=== PATIENT | female | born 1955 | race Caucasian/White ===

== ENCOUNTER 2025-02-27 12:46 | Inpatient (IN) | payer BC, MEDICARE ==
[~2025-02-27] VITALS: Ht 165.1 cm; Wt 64.6 kg
--- NOTE | 2025-02-27 12:51 | ERN ---
ED Note History of Present Illness Stated Complaint: OTHER Chief Complaint: Other Problems Time Seen by MD: 12:49 Dictation: PATIENT IS A CONFUSED CONFUSED 69-YEAR-OLD FEMALE COMING IN VIA EMS FROM HOME. SHE IS UNABLE TO PROVIDE A HISTORY, EMS STATES THAT THEY WERE CALLED BY HER SON MARITZA WHO SAID THAT THEY HAD DRIVEN DOWN WITH THE PATIENT FROM [place] THIS WEEKEND AND DURING THE TRIP SHE BECAME MORE CONFUSED AND THEN BECAME MORE AGITATED. SHE IS CALLING HER SISTER MARITZA'S . SHE DOES HAVE A HISTORY OF ALZHEIMER'S AND DEMENTIA RECENTLY HAD A MEDICATION CHANGE. Allergies: Coded Allergies: No Known Drug Allergies (Unverified Allergy, Unknown, 02/27/25) Home Meds Active Scripts Amoxicillin/Potassium Clav (Amox Tr-K Clv 875-125 mg Tab) 875 Mg-125 Mg Tablet, 1 EACH PO BID for 7 Days, #14 TAB 0 Refills Prov:LIZZIE MATHIAS ROUTER OPERATOR RADIAL 02/27/25 Past Medical History History: Not Applicable RN Note Reviewed/Agreed w/PFSH: Yes Review of System Dictation CONSTITUTIONAL: NEGATIVE EXCEPT FOR HPI HEAD/FACE: NEGATIVE EXCEPT FOR HPI EENT: NEGATIVE EXCEPT FOR HPI RESPIRATORY: NEGATIVE EXCEPT FOR HPI GASTROINTESTINAL/ABDOMINAL: NEGATIVE EXCEPT FOR HPI GENITOURINARY: NEGATIVE EXCEPT FOR HPI MUSCULOSKELETAL: NEGATIVE EXCEPT FOR HPI INTEGUMENTARY: NEGATIVE EXCEPT FOR HPI NEUROLOGICAL/PSYCH: NEGATIVE EXCEPT FOR HPI ALTERED MENTAL STATUS/INCREASED CONFUSION HEMATOLOGIC/LYMPHATIC: NEGATIVE EXCEPT FOR HPI ALL SYSTEMS NEGATIVE, EXCEPT NOTED ABOVE. 13 POINT REVIEW OF SYSTEMS ASSESSED AND ALL NEGATIVE EXCEPT FOR ABOVE. Initial Vital Sign VS Vital Signs Date Time Temp Pulse Resp B/P (MAP) Pulse Ox O2 Delivery O2 Flow Rate FiO2 02/27/25 12:52 98.2 116 18 142/92 98 Room Air 0 Physical Exam Dictation VITAL SIGNS REVIEWED GENERAL APPEARANCE: ALERT, ORIENTED X 1-2, NO ACUTE DISTRESS, WELL DEVELOPED, NOURISHED. ANXIOUS HEAD AND FACE: NON-TRAUMATIC. EYES: PERRL, PINK CONJUNCTIVAS, EYELID NO TRAUMA, ANTERIOR CHAMBER WITH ARCUS SENILIS. EARS: PINNAS INTACT AND NO SIGNS OF TRAUMA OR ERYTHEMA EAR CANALS CLEAR AND NO DISCHARGE TM NO ERYTHEMA NOSE: NO DISCHARGE, NO BLEEDING. OROPHARYNX: MOUTH NORMAL, TONGUE PINK, PHARYNX CLEAR,NO ERYTHEMA, TONSILS NO EXUDATES, NO ABSCESSES NOTED, MUCOUS MEM BRANE MOIST NECK: SUPPLE, NON-TENDER, NO THYROMEGALY, NO MASSES, NO JVD, NO BRUITS BREAST:DEFERRED CHEST:NO TENDERNESS, NO CREPITUS, NO PARADOXICAL MOVEMENT, NO RETRACTIONS LUNGS:CLEAR, WELL-VENTILATED, SYMMETRIC, NO RALES, NO WHEEZING, NO RHONCHI, NO STRIDOR, GOOD BREATH SOUNDS BILATERALLY HEART: REGULAR RATE, REGULAR RHYTHM, NO MURMUR, NO GALLOPS VASCULAR: NO PERIPHERAL EDEMA, ABDOMEN: SOFT, POSITIVE BOWEL SOUNDS, NONDISTENDED, NO GUARDING, NONTENDER, NO REBOUND, NO MASSES NO HEPATOMEGALY, NO SPLENOMEGALY, NO MOORE'S SIGN, NO HERNIAS. RECTAL: DEFERRED GENITAL: DEFERRED NEUROLOGICAL: NORMAL SPEECH, MOTOR FUNCTION INTACT, SENSORY FUNCTION INTACT MUSCULOSKELETAL: NECK NONTENDER, FULL RANGE OF MOTION, BACK NONTENDER, FULL RANGE OF MOTION, EXTREMITIES: NONTENDER, FULL RANGE OF MOTION SKIN: COLOR PINK, DRY, NO TURGOR, NO RASH, NO LACERATIONS, NO ABRASIONS, NO CONTUSIONS. LYMPHATIC: DEFERRED Results (Laboratory/Radiology) Laboratory/Radiology Laboratory Tests Test 02/27/25 12:59 02/27/25 14:21 White Blood Count 6.7 K/uL (4.8-10.8) Red Blood Count 4.30 MIL/uL (4.00-5.50) Hemoglobin 13.3 g/dL (12.0-16.0) Hematocrit 38.8 % (36-48) Mean Corpuscular Volume 90.2 fL (79-99) Mean Corpuscular Hemoglobin 30.9 pg (27.0-33.0) Mean Corpuscular Hemoglobin Concent 34.3 g/dL (32.0-36.0) Red Cell Distribution Width 13.0 % (11.0-15.5) Platelet Count 240 K/uL (130-400) Mean Platelet Volume 8.8 fL (7.5-10.5) Immature Granulocyte % (Auto) 0.2 % (0-1) Neutrophils (%) (Auto) 65.7 % (40.0-77.0) Lymphocytes (%) (Auto) 25.4 % (21.0-51.0) Monocytes (%) (Auto) 7.7 % (3.0-13.0) Eosinophils (%) (Auto) 0.5 % (0.0-8.0) Basophils (%) (Auto) 0.5 % (0.0-5.0) Neutrophils # (Auto) 4.4 K/uL (1.8-7.7) Lymphocytes # (Auto) 1.7 K/uL (1.0-4.8) Monocytes # (Auto) 0.5 K/uL (0.1-1.0) Eosinophils # (Auto) 0.03 K/uL (0.00-0.70) Basophils # (Auto) 0.03 K/uL (0.00-0.20) Absolute Immature Granulocyte (auto 0.01 K/uL (0-1) Nucleated Red Blood Cells 0.0 % (0.0-0.19) Sodium Level 143 mmol/L (136-145) Potassium Level 3.8 mmol/L (3.5-5.1) Chloride Level 106 mmol/L (101-111) Carbon Dioxide Level 28 mmol/L (21-32) Blood Urea Nitrogen 14 mg/dL (7-18) Creatinine 0.7 mg/dL (0.5-1.0) Glomerular Filtration Rate Calc 92 mL/min (>90) Random Glucose 102 mg/dL (70-105) Total Calcium 9.5 mg/dL (8.5-10.1) Magnesium Level 2.00 mg/dL (1.80-2.40) Total Bilirubin 0.6 mg/dL (0.2-1.0) Aspartate Amino Transf (AST/SGOT) 24 U/L (10-37) Alanine Aminotransferase (ALT/SGPT) 23 U/L (12-78) Alkaline Phosphatase 62 U/L (50-136) Total Protein 7.3 g/dL (6.0-8.3) Albumin 4.0 g/dL (3.5-5.0) Urine Color YELLOW (YELLOW) Urine Appearance CLOUDY (CLEAR) H Urine pH 5.0 (5.0-8.0) Urine Specific [place] 1.024 (1.001-1.031) Urine Protein 10 mg/dL (NEGATIVE) H Urine Glucose (UA) NEGATIVE mg/dL (NEGATIVE) Urine Ketones NEGATIVE mg/dL (NEGATIVE) Urine Occult Blood +- (TRACE) (NEGATIVE) H Urine Nitrate 2+ (NEGATIVE) H Urine Bilirubin NEGATIVE mg/dL (NEGATIVE) Urine Urobilinogen 0.2 mg/dL (0.2-1.0) Urine Leukocyte Esterase 500 Padmini/uL (NEGATIVE) H Urine RBC 6-10 /HPF (0-1) H Urine WBC 26-50 /HPF (0-1) H Urine Squamous Epithelial Cells FEW /HPF (0-2) Urine Bacteria FEW /HPF (None Seen) Urine Other Casts 2 /LPF (None Seen) Urine Opiates Screen NEGATIVE (NEGATIVE) Urine Barbiturates Screen NEGATIVE (NEGATIVE) Urine Phencyclidine Screen NEGATIVE (NEGATIVE) Urine Amphetamines Screen NEGATIVE (NEGATIVE) Urine Benzodiazepines Screen NEGATIVE (NEGATIVE) Urine Cocaine Screen NEGATIVE (NEGATIVE) Urine Marijuana (THC) Screen NEGATIVE (NEGATIVE) XAM: CR Chest, 1 View. CLINICAL HISTORY: CONFUSION COMPARISON: None provided. FINDINGS: LUNGS: The lungs show no infiltrate or other acute finding. PLEURAL SPACES: No pleural effusion or pneumothorax. MEDIASTINUM: The cardiomediastinal silhouette is within normal limits. BONES: No aggressive appearing osseous lesion seen. IMPRESSION: No acute cardiopulmonary pathology is evident. /[place] M: CT Head Without IV contrast. CLINICAL HISTORY: CONFUSION TECHNIQUE: Axial computed tomography images of the head/brain without intravenous contrast. COMPARISON: None provided. FINDINGS: BRAIN: No acute bleed or infarct. Mild chronic ischemic and atrophic changes. VENTRICLES: No hydrocephalus. ORBITS: The orbits are unremarkable. SINUSES AND MASTOIDS: The paranasal sinuses and mastoid air cells are clear. BONES: No fracture. SOFT TISSUES: Unremarkable. IMPRESSION: No acute bleed or infarct. Mild chronic ischemic and atrophic changes. /[place] Labs Reviewed?: Yes EKG Comment: EKG NORMAL SINUS RHYTHM/HEART RATE 78/AXIS NORMAL/NO ECTOPY ED Course ED Course Orders Procedure Category Date Status Time Ct Head/Brain W/O CT 02/27/25 Resulted Contrast 12:48 Drug Screen Urine LAB 02/27/25 Complete 12:48 Cbc With Differential LAB 02/27/25 Complete 12:48 Chest 1vw RAD 02/27/25 Resulted 12:48 12 Lead Ekg Tracing- EKG 02/27/25 Logged Technical 12:48 Magnesium LAB 02/27/25 Complete 12:48 Basic Metabolic Panel LAB 02/27/25 Complete 12:48 Comprehensive LAB 02/27/25 Complete Metabolic Panel 12:48 Urinalysis Profile LAB 02/27/25 Complete 12:48 One To One Sitter CPOE 02/27/25 Transmitted 14:33 Culture Urine VIN 02/27/25 In Process 14:36 Ceftriaxone 2gm Vial PHA 02/27/25 Complete (Rocephin 2gm Inj) 15:00 Edm Admit Bridge Order ADM 02/27/25 Verified 16:07 Current Medications Medications (Trade) Dose Ordered Sig/Nunu Route PRN Reason Start Time Stop Time Status Last Admin Dose Admin Ceftriaxone Sodium (Rocephin 2gm Inj) 2 gm ONCE ONCE IVPB 02/27/25 15:00 02/27/25 15:01 DC 02/27/25 15:19 Vital Signs Date Time Temp Pulse Resp B/P (MAP) Pulse Ox O2 Delivery O2 Flow Rate FiO2 02/27/25 12:52 98.2 116 18 142/92 98 Room Air 0 1500/SPOKE WITH PATIENT AND HER SON, SUZY AT BEDSIDE. THEY ARE AWARE THAT I HAVE HAD NO ACUTE FINDINGS OTHER THAN AN ACUTE UTI WITH HEMATURIA. PATIENT IS INSISTENT THAT SHE IS NOT STAYING IN THE HOSPITAL, MED IS AWARE I HAVE NO ABILITY TO MAKE HER STATE. SHE AGREES TO LET ME KEEP HER FOR ROCEPHIN 2 G AND MED STATES SHE IS STAYING WITH HER SISTER.1550/ 1550/ANTIBIOTICS WERE COMPLETED. SPOKE TO PATIENT AND HER SON AT LENGTH REGARDING THE NEED FOR HOSPITALIZATION AND CONTINUED IV ANTIBIOTICS. PATIENT A GREES TO STAY OVERNIGHT. SON IS AT THE BEDSIDE AND HE AGREES. 1605/SPOKE WITH [facility] HOSPITALIST REVIEWED EKG LABS CHEST X-RAY AND SHE AGREED TO ADMIT. SHE IS AWARE THAT PATIENT HAS RECEIVED ROCEPHIN2 G IV PIGGYBACK. HEART Score Response (Comments) Value History: Low suspicion (0) 0 Age: > 65yrs (+2) 2 Risk Factors: 1-2 risk factors (+1) 1 Initial Troponin: Normal limit (0) 0 Total 3 Medical Decision Making MDM MDM: DIFFERENTIAL DIAGNOSIS: DEMENTIA/ALZHEIMER'S/ELECTROLYTE IMBALANCE/DEHYDRATION/DRUG ABUSE/PNEUMONIA/BRONCHITIS/UTI RATIONALE: TESTS CONSIDERED AND ORDERED SECONDARY TO SHARED DECISION MAKING INCLUDE: LABS/RADIOLOGY PREVIOUS OUTSIDE RECORDS REVIEWED: OLD ER VISITS. RISK OF COMPLICATION AND/OR MORBIDITY OR MORTALITY OF PATIENT MANAGEMENT: NONE MEDICATIONS-PER MEDICATION RECONCILIATION NEED FOR HOSPITALIZATION: PATIENT DOES NOT MEET CRITERIA FOR HOSPITALIZATION. PATIENT REFUSED AND SONSUZY AT BEDSIDE AGREES NEED FOR EMERGENCY MAJOR/MINOR SURGERY: NO THERE ARE NO SOCIAL CONCERNS WITH THIS PATIENT. PRESCRIPTION DRUG MANAGEMENT AUGMENTIN PRESCRIPTIONS WILL INCLUDE SYMPTOMATIC CARE PATIENT'S PRIOR EXTERNAL MEDICAL RECORDS FROM OTHER ER VISITS WERE REVIEWED BY ME INDICATED. PRIOR TESTING AND RESULTS FROM PREVIOUS VISITS WERE REVIEWED. PRIOR TESTS WERE TAKEN INTO ACCOUNT WITH MEDICAL DECISION MAKING AND RESOURCE UTILIZATION, INDEPENDENT HISTORIAN/HISTORIANS WERE USED TO OBTAIN COMPLETE MEDICAL HISTORY. I INDEPENDENTLY INTERPRETED THE TEST THAT WERE PERFORMED, RESULTS WERE REVIEWED BY ME AND CONSIDERED FINDINGS ON RADIOLOGY IF ORDERED. MEDICAL MANAGEMENT AND EXAMINATION INTERPRETATION DISCUSSIONS WERE HAD BY ME WITH OTHER QUALIFIED HEALTHCARE PROFESSIONALS INDICATED FOR THE PATIENT'S CARE. DX & DISP Disposition: Inpatient Decision to Admit Time: 16:04 Departure Impression: Primary Impression: Acute cystitis with hematuria Additional Impression: History of dementia Condition: Stable Scripts Amoxicillin/Potassium Clav (Amox Tr-K Clv 875-125 mg Tab) 875 Mg-125 Mg Tablet 1 EACH PO BID for 7 Days, #14 TAB 0 Refills Prov: LIZZIE MATHIAS NP 02/27/25 Additional Instructions: FOLLOW-UP WITH PRIMARY CARE PROVIDER IN 1 TO 2 DAYS. TAKE MEDICATIONS DIRECTED HERE IN THE EMERGENCY ROOM. OKAY TO CONTINUE HOME MEDICATIONS UNLESS OTHERWISE DISCUSSED DURING YOUR VISIT IN THE EMERGENCY ROOM TODAY. RETURN TO YOUR NEAREST EMERGENCY ROOM IF SYMPTOMS WORSEN OR IF THERE IS NO IMPROVEMENT. CALL 911 IF YOU NEED IMMEDIATE ASSISTANCE. TAKE TYLENOL OR MOTRIN [id number] NEEDED AND IF NO CONTRAINDICATIONS ARE PRESENT. INCREASE ORAL HYDRATION. A WOUND CULTURE OR URINE CULTURE WAS ORDERED HERE IN THE EMERGENCY ROOM DEPARTMENT PLEASE FOLLOW-UP WITH PRIMARY CARE PROVIDER AND ADVISE THEM TO GET REPEAT PORTS FROM OUR FACILITY. IF YOU HAD ANY NUHA WRAP/SPLINTS THAT WERE APPLIED HERE, PLEASE DO NOT REMOVE THEM UNTIL YOU SEE YOUR PRIMARY CARE OR SPECIALTY. TAKE ANTIBIOTICS DIRECTED UNTIL GONE. , INCREASE YOUR WATER INTAKE. RETURN TO THE EMERGENCY ROOM IF ANY NEW CHANGES IN MENTAL STATUS, FEVER MORE THAN 101, PATIENT NOT KEEP FOOD OR FLUIDS DOWN. Time of Disposition: 15:54 I have reviewed the case, and I agree with, Diagnosis and Plan LIZZIE MATHIAS NP Feb 27, 2025 12:51
[2025-02-27 13:07] LABS: IMMATURE GRANULOCYTE ABSOLUTE 0.01 K/uL (0-1); NUCLEATED RED BLOOD CELLS 0.0 % (0.0-0.19); PLATELET COUNT (AUTO) 240 K/uL (130-400); RED BLOOD CELL COUNT(AUTO) 4.30 MIL/uL (4.00-5.50); RED CELL DISTRIBUTION WIDTH 13.0 % (11.0-15.5); WHITE BLOOD COUNT (AUTO) 6.7 K/uL (4.8-10.8)
--- NOTE | 2025-02-27 13:14 | HMCIMG ---
EXAM: CR Chest, 1 View. CLINICAL HISTORY: CONFUSION COMPARISON: None provided. FINDINGS: LUNGS: The lungs show no infiltrate or other acute finding. PLEURAL SPACES: No pleural effusion or pneumothorax. MEDIASTINUM: The cardiomediastinal silhouette is within normal limits. BONES: No aggressive appearing osseous lesion seen. IMPRESSION: No acute cardiopulmonary pathology is evident. /[place]
[2025-02-27 13:18] LABS: CREATININE 0.7 mg/dL (0.5-1.0); GLOMERULAR FILTR. RATE CALC 92.0 mL/min (>90); GLUCOSE,RANDOM 102.0 mg/dL (70-105); SODIUM SERUM 143.0 mmol/L (136-145); UREA NITROGEN, BLOOD 14.0 mg/dL (7-18)
[2025-02-27 13:23] LABS: ASPARTATE AMINOTRANSFERASE 24.0 U/L (10-37); TOTAL PROTEIN, SERUM 7.3 g/dL (6.0-8.3)
--- NOTE | 2025-02-27 14:00 | NUR ---
ASSUMED CARE AT THIS TIME
--- NOTE | 2025-02-27 14:10 | HMCIMG ---
EXAM: CT Head Without IV contrast. CLINICAL HISTORY: CONFUSION TECHNIQUE: Axial computed tomography images of the head/brain without intravenous contrast. COMPARISON: None provided. FINDINGS: BRAIN: No acute bleed or infarct. Mild chronic ischemic and atrophic changes. VENTRICLES: No hydrocephalus. ORBITS: The orbits are unremarkable. SINUSES AND MASTOIDS: The paranasal sinuses and mastoid air cells are clear. BONES: No fracture. SOFT TISSUES: Unremarkable. IMPRESSION: No acute bleed or infarct. Mild chronic ischemic and atrophic changes. /[place]
[2025-02-27 14:29] LABS: APPEARANCE,URINE CLOUDY (CLEAR); GLUCOSE, URINE (UA) NEGATIVE (NEGATIVE); LEUKOCYTE ESTERASE ,URINE 500 Leu/uL (NEGATIVE); NITRATE,URINE 2+ (NEGATIVE); OCCULT BLOOD,URINE +- (TRACE) (NEGATIVE)
[2025-02-27 14:30] LABS: ADD UA MICROSCOPIC YES
--- NOTE | 2025-02-27 14:35 | NUR ---
PT 1:1 DUE TO DEMENTIA ALZHENIMERS AGRESSIVENESS
[2025-02-27 14:36] LABS: AMPHET/METH SCREEN,URINE NEGATIVE (NEGATIVE); BARBITURATE SCREEN, URINE NEGATIVE (NEGATIVE); CANNABINOID SCREEN,URINE NEGATIVE (NEGATIVE); COCAINE SCREEN,URINE NEGATIVE (NEGATIVE)
[2025-02-27 14:37] LABS: OTHER CASTS, URINE 2 /LPF (None Seen); SQUAMOUS EPITHELIAL CELL,UR FEW /HPF (0-2)
[2025-02-27] MEDS ORDERED: AMOX1TAB16 PO (15:54)
--- NOTE | 2025-02-27 16:58 | HP ---
[facility] HISTORY AND PHYSICAL Date of Service: Feb 27, 2025 Time of Service: 16:17 HISTORY OF PRESENT ILLNESS: [This is a 69-year-old female with a history of early Alzheimer's disease and hypertension who traveled from [place] to [place] with her son, Mario, to visit her sister. During the trip, her son noted that she became increasingly agitated and exhibited changes in behavior compared to her baseline. Due to these acute changes, she was brought to the ER by ambulance for further evaluation. Her medications include donepezil, which was recently increased to 10 mg daily by her PCP last week, and losartan 100 mg daily. In the ED, she received 1 L of normal saline and 2 g IV ceftriaxone. Urinalysis was positive for leukocyte esterase (500), and urine cultures were sent. Hematology and chemistry labs were unremarkable. Chest X-ray showed no acute cardiopulmonary pathology. Head CT without contrast showed no acute bleed or infarct, but did reveal mild chronic ischemic and atrophic changes. She was referred to the hospitalist service for further evaluation and management.] REVIEW OF SYSTEMS CONSTITUTIONAL: Denies fevers, chills, or night sweats. No unintentional weight loss reported. NEUROLOGICAL: Denies headache, amaurosis fugax, motor weakness, sensory deficit, vertigo/spinning sensation, gait abnormalities, or tremors. ENT: No hearing loss, otalgia, otorrhea, rhinitis, rhinorrhea, hoarseness, or sore throat. CARDIOVASCULAR: Denies any exertional angina, dyspnea on exertion, orthopnea, paroxysmal nocturnal dyspnea, palpitations, life-threatening arrhythmias, claudication. PULMONARY: Denies any shortness of breath, cough, phlegm/sputum, hemoptysis, pleuritic chest pain. SLEEP: Denies morning headaches, daytime somnolence or napping. Denies difficulty falling asleep, staying asleep, waking from sleep. Denies knowledge of snoring. GASTROINTESTINAL: Denies any type of dysphagia to either liquids or solids. Denies nausea, vomiting, pyrosis, early satiety, abdominal pain, diarrhea, constipation, or changes in stool consistency or caliber. Denies coffee-ground emesis, hematemesis, hematochezia, or melanotic stools. GENITOURINARY: Denies frequency, urgency, nocturia, hematuria or incontinence (Storage/Irritative symptoms.) Low urinary stream, straining to void, urinary intermittency or hesitancy, splitting of the voiding stream, terminal dribbling. ENDOCRINOLOGIC: Denies polyuria, polydipsia, polyphagia or heat/cold intolerances. HEMATOLOGIC: Denies thrombophilia/previous clots, or coagulopathy/bleeding disorders. ONCOLOGIC: Denies personal history of malignancy. DERMATOLOGIC: Denies rashes or pruritus. PSYCHIATRIC: Denies any suicidal or homicidal ideation. Denies hallucinations. PAST MEDICAL HISTORY: [Alzheimer's disease, hypertension, asthma ] PAST SURGICAL HISTORY: [Hip replacement, hysterectomy, cholecystectomy ] PAST SOCIAL HISTORY: [Occasionally drinks wine, denies tobacco, alcohol illicit drug use. 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 ] FAMILY HISTORY: [Noncontributory ] Coded Allergies: No Known Drug Allergies (Unverified Allergy, Unknown, 02/27/25) PHYSICAL EXAM GENERAL APPEARANCE: The patient is awake, alert, and oriented, in no acute cardiopulmonary distress. NEUROLOGICAL: Cranial nerves II-XII grossly intact. Motor is 5/5 in bilateral upper and lower extremities proximal to distal. No sensory deficits. HEENT: Face is symmetric. Pupils are equal and reactive. Extraocular movements are intact. NECK: Supple. No JVD. No thyromegaly. No submental, submandibular, pre-/po stauricular, occipital or supraclavicular lymphadenopathy. CHEST: Normal chest expansion. No Telemetry. LUNGS: Absence of any rales, rhonchi or any wheezing. CARDIOVASCULAR: Regular. S1 and S2 normal. No appreciable rubs, murmurs or gallops. ABDOMEN: Soft, nontender, and nondistended. There is no rebound, voluntary guarding, or rigidity. : Deferred. No Shields. EXTREMITIES: Non-edematous and not cyanotic. No clubbing. Good capillary refill. SKIN: No skin breakdown. Vital Sign (Last 24 Hours) 02/27/25 12:52 Temp 98.2 Pulse 116 Resp 18 B/P (MAP) 142/92 Pulse Ox 98 O2 Delivery Room Air O2 Flow Rate 0 LABS: Laboratory: Test 02/27/25 14:21 02/27/25 12:59 Range/Units Urine Color YELLOW YELLOW Urine Appearance CLOUDY H CLEAR Urine pH 5.0 5.0-8.0 Urine Specific [place] 1.024 1.001-1.031 Urine Protein 10 H NEGATIVE mg/dL Urine Glucose (UA) NEGATIVE NEGATIVE mg/dL Urine Ketones NEGATIVE NEGATIVE mg/dL Urine Occult Blood +- (TRACE) H NEGATIVE Urine Nitrate 2+ H NEGATIVE Urine Bilirubin NEGATIVE NEGATIVE mg/dL Urine Urobilinogen 0.2 0.2-1.0 mg/dL Urine Leukocyte Esterase 500 H NEGATIVE Padmini/uL Urine RBC 6-10 H 0-1 /HPF Urine WBC 26-50 H 0-1 /HPF Urine Squamous Epithelial Cells FEW 0-2 /HPF Urine Bacteria FEW None Seen /HPF Urine Other Casts 2 None Seen /LPF Urine Opiates Screen NEGATIVE NEGATIVE Urine Barbiturates Screen NEGATIVE NEGATIVE Urine Phencyclidine Screen NEGATIVE NEGATIVE Urine Amphetamines Screen NEGATIVE NEGATIVE Urine Benzodiazepines Screen NEGATIVE NEGATIVE Urine Cocaine Screen NEGATIVE NEGATIVE Urine Marijuana (THC) Screen NEGATIVE NEGATIVE White Blood Count 6.7 4.8-10.8 K/uL Red Blood Count 4.30 4.00-5.50 MIL/uL Hemoglobin 13.3 12.0-16.0 g/dL Hematocrit 38.8 36-48 % Mean Corpuscular Volume 90.2 79-99 fL Mean Corpuscular Hemoglobin 30.9 27.0-33.0 pg Mean Corpuscular Hemoglobin Concent 34.3 32.0-36.0 g/dL Red Cell Distribution Width 13.0 11.0-15.5 % Platelet Count 240 130-400 K/uL Mean Platelet Volume 8.8 7.5-10.5 fL Immature Granulocyte % (Auto) 0.2 0-1 % Neutrophils (%) (Auto) 65.7 40.0-77.0 % Lymphocytes (%) (Auto) 25.4 21.0-51.0 % Monocytes (%) (Auto) 7.7 3.0-13.0 % Eosinophils (%) (Auto) 0.5 0.0-8.0 % Basophils (%) (Auto) 0.5 0.0-5.0 % Neutrophils # (Auto) 4.4 1.8-7.7 K/uL Lymphocytes # (Auto) 1.7 1.0-4.8 K/uL Monocytes # (Auto) 0.5 0.1-1.0 K/uL Eosinophils # (Auto) 0.03 0.00-0.70 K/uL Basophils # (Auto) 0.03 0.00-0.20 K/uL Absolute Immature Granulocyte (auto 0.01 0-1 K/uL Nucleated Red Blood Cells 0.0 0.0-0.19 % Sodium Level 143 136-145 mmol/L Potassium Level 3.8 3.5-5.1 mmol/L Chloride Level 106 101-111 mmol/L Carbon Dioxide Level 28 21-32 mmol/L Blood Urea Nitrogen 14 7-18 mg/dL Creatinine 0.7 0.5-1.0 mg/dL Glomerular Filtration Rate Calc 92 >90 mL/min Random Glucose 102 70-105 mg/dL Total Calcium 9.5 8.5-10.1 mg/dL Magnesium Level 2.00 1.80-2.40 mg/dL Total Bilirubin 0.6 0.2-1.0 mg/dL Aspartate Amino Transf (AST/SGOT) 24 10-37 U/L Alanine Aminotransferase (ALT/SGPT) 23 12-78 U/L Alkaline Phosphatase 62 50-136 U/L Total Protein 7.3 6.0-8.3 g/dL Albumin 4.0 3.5-5.0 g/dL Current Medications Medications (Trade) Dose Ordered Sig/Nunu Route PRN Reason Start Time Stop Time Status Last Admin Dose Admin Acetaminophen (TYLenol 325MG TAB) 650 mg Q4H PRN PO TEMPERATURE GREATER THAN 101.5 02/27/25 16:30 03/29/25 16:29 UNV Acetaminophen (TYLenol 325MG TAB) 650 mg Q6H PRN PO MILD PAIN (1-3) 02/27/25 16:30 03/29/25 16:29 UNV Ceftriaxone Sodium (Rocephin 2gm Inj) 2 gm Q24H IVPB 02/27/25 16:30 03/09/25 16:29 UNV Ondansetron HCl (zoFRAN 4MG INJ) 4 mg Q6H PRN IVP NAUSEA/VOMITING 02/27/25 16:30 03/29/25 16:29 UNV Sodium Chloride 1,000 ml @ 75 mls/hr [id number] IV 02/27/25 16:30 03/29/25 16:29 UNV DIAGNOSTICS / RADIOLOGY: [ ] ASSESSMENT: [Acute delirium, likely secondary to urinary tract infection, POA -acute onset of agitation and behavioral changes, positive urinalysis, urine culture pending, no evidence of acute intracranial or cardiopulmonary process -Metabolic encephalopathy Early Alzheimer's disease, POA -baseline cognitive impairment, recent increase in donepezil dosage Hypertension, POA -chronic, managed with losartan ] Urinary Tract infection, POA PLAN: [Patient will be admitted in medical-surgical floor Patient can have heart healthy diet Continue with supportive care We will repeat labs tomorrow Delirium/UTI: Continue IV ceftriaxone pending urine culture and sensitivities Monitor mental status and reorient as needed Ensure adequate hydration Monitor for complications (sepsis, worsening mental status) Alzheimer's disease: With 1-1 supervision Continue donepezil at current dose Monitor for adverse effects from recent dose increase Reassess cognitive baseline after resolution of acute illness Hypertension: Continue losartan 100 mg daily Monitor blood pressure and adjust antihypertensive therapy as needed General care: Fall precautions Monitor labs and vital signs Family education regarding delirium and UTI in the context of dementia Discharge planning with social work/case management as appropriate Patient is a full code ADVANCED CARE PLANNING 1. Which of the following were discussed? Hospice Care - Yes / No Therapeutic options - Yes / No Advance Directives - Yes / No Other discussions - 2. Discussed with who? Patient 3. Voluntary nature of this service was explained to the patient? Yes / No 4. Amount of time spent - __20 mins 5. Reviewed by Physician? (if this service was performed by NPP) Yes / No ] ATTESTATION BY PHYSICIAN I have seen and examined the patient. I reviewed the documentation, medical decision making, and treatment plan as noted by the mid-level provider above. I agree with the findings and plan of care. Ju Castanon MD, [facility] Feb 27, 2025 16:58
[2025-02-27] MEDS: 0.9%NACL 1000ML 1,000 ML IV SCH (18:04)
--- NOTE | 2025-02-27 18:10 | NUR ---
PT HAS A ROOM BUT AFTER 7 NO SITTER DURING DAY SHIFT
--- NOTE | 2025-02-27 18:20 | EKG ---
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
[2025-02-27 19:56] VITALS: BP 160/89; PULSE 80; RESP 20; TEMP 97.7
[2025-02-27] MEDS ORDERED: DONE10TA43 PO (22:34)
[2025-02-27] MEDS ORDERED: LOSA100T59 PO (22:34)
[2025-02-28] VITALS (7 sets, daily range): BP systolic 134–161; BP diastolic 76–85; PULSE 66–90; RESP 17–21; TEMP 97.6–98.4; O2SAT 98
[2025-02-28 04:19] LABS: NUCLEATED RED BLOOD CELLS 0.0 % (0.0-0.19); PLATELET COUNT (AUTO) 187.0 K/uL (130-400); RED BLOOD CELL COUNT(AUTO) 4.04 MIL/uL (4.00-5.50); RED CELL DISTRIBUTION WIDTH 13.0 % (11.0-15.5); WHITE BLOOD COUNT (AUTO) 5.9 K/uL (4.8-10.8)
[2025-02-28 04:38] LABS: ASPARTATE AMINOTRANSFERASE 18.0 U/L (10-37); CREATININE 0.7 mg/dL (0.5-1.0); GLOMERULAR FILTR. RATE CALC 92.0 mL/min (>90); GLUCOSE,RANDOM 103.0 mg/dL (70-105); SODIUM SERUM 144.0 mmol/L (136-145); TOTAL PROTEIN, SERUM 6.1 g/dL (6.0-8.3); UREA NITROGEN, BLOOD 13.0 mg/dL (7-18)
[2025-02-28] MEDS: MAGNESIUM 2GM PREMIX 50ML 50 ML IV PRN (05:21)
[2025-02-28] MEDS: PoTASSium chloRIDE 20MEQ ER 20 MEQ ERTAB PO PRN (05:22)
[2025-02-28] MEDS: PoTASSium chl 10% ELIXIR 20MEQ 20 MEQ/15 ML UDCUP PO PRN (10:07)
--- NOTE | 2025-02-28 10:28 | NUR ---
DCP:[facility] spoke with son Mario Wright [phone] to gather information. Son states that they are currently in town because pt was going to be staying with her sister Italia Mars [phone] for 1-2 weeks while he traveled for work. As per son back at home pt lives alone in her home. She does not use any DME, home health, or provider services. Pt is able to complete ADLs independently. Son states that he lives down the street from her and checks in on her daily. PCP is Blossom Jacobson in [place], [place] and uses [facility] for any RX needs. As per son at [place] pt will be staying with her sister Italia and then they will be traveling back to [place]. Addendum: 02/28/25 at 1031 by BRI GUILLEN SS Amended: Links added.
--- NOTE | 2025-02-28 15:06 | PN ---
[facility] PROGRESS NOTE Date of Service: Feb 28, 2025 Time of Service: 15:02 SUBJECTIVE: [ The patient was evaluated in her room, where she was accompanied by her sister. She appeared agitated and repeatedly expressed a strong desire to be discharged home. Despite multiple attempts to explain the necessity of remaining hospitalized until her final culture results are available, she was unable to fully comprehend the situation. Her sister also attempted to reinforce this information, but the patient continued to have difficulty understanding. She has a known history of early dementia and is currently taking donepezil.] REVIEW OF SYSTEMS CONSTITUTIONAL: Denies fevers, chills, or night sweats. No unintentional weight loss reported. NEUROLOGICAL: Denies headache, amaurosis fugax, motor weakness, sensory deficit, vertigo/spinning sensation, gait abnormalities, or tremors. ENT: No hearing loss, otalgia, otorrhea, rhinitis, rhinorrhea, hoarseness, or sore throat. CARDIOVASCULAR: Denies any exertional angina, dyspnea on exertion, orthopnea, paroxysmal nocturnal dyspnea, palpitations, life-threatening arrhythmias, claudication. PULMONARY: Denies any shortness of breath, cough, phlegm/sputum, hemoptysis, pleuritic chest pain. SLEEP: Denies morning headaches, daytime somnolence or napping. Denies difficulty falling asleep, staying asleep, waking from sleep. Denies knowledge of snoring. GASTROINTESTINAL: Denies any type of dysphagia to either liquids or solids. Denies nausea, vomiting, pyrosis, early satiety, abdominal pain, diarrhea, constipation, or changes in stool consistency or caliber. Denies coffee-ground emesis, hematemesis, hematochezia, or melanotic stools. GENITOURINARY: Denies frequency, urgency, nocturia, hematuria or incontinence (Storage/Irritative symptoms.) Low urinary stream, straining to void, urinary intermittency or hesitancy, splitting of the voiding stream, terminal dribbling. ENDOCRINOLOGIC: Denies polyuria, polydipsia, polyphagia or heat/cold intolerances. HEMATOLOGIC: Denies thrombophilia/previous clots, or coagulopathy/bleeding disorders. ONCOLOGIC: Denies personal history of malignancy. DERMATOLOGIC: Denies rashes or pruritus. PSYCHIATRIC: Denies any suicidal or homicidal ideation. Denies hallucinations. PHYSICAL EXAM GENERAL APPEARANCE: The patient is awake, alert, and oriented, in no acute cardiopulmonary distress. NEUROLOGICAL: Cranial nerves II-XII grossly intact. Motor is 5/5 in bilateral upper and lower extremities proximal to distal. No sensory deficits. HEENT: Face is symmetric. Pupils are equal and reactive. Extraocular movements are intact. NECK: Supple. No JVD. No thyromegaly. No submental, submandibular, pre- /postauricular, occipital or supraclavicular lymphadenopathy. CHEST: Normal chest expansion. No Telemetry. LUNGS: Absence of any rales, rhonchi or any wheezing. CARDIOVASCULAR: Regular. S1 and S2 normal. No appreciable rubs, murmurs or gallops. ABDOMEN: Soft, nontender, and nondistended. There is no rebound, voluntary guarding, or rigidity. : Deferred. No Shields. EXTREMITIES: Non-edematous and not cyanotic. No clubbing. Good capillary refill. SKIN: No skin breakdown. Vital Signs (last 8hr) Date Time Temp Pulse Resp B/P (MAP) Pulse Ox O2 Delivery O2 Flow Rate FiO2 02/28/25 11:54 97.9 80 18 139/80 99 Room Air 02/28/25 07:53 97.7 66 19 134/76 98 Room Air 02/28/25 07:45 98 Room Air* 0 21 LABS: Laboratory: Test 02/28/25 04:15 02/27/25 14:21 02/27/25 12:59 Range/Units White Blood Count 5.9 4.8-10.8 K/uL Red Blood Count 4.04 4.00-5.50 MIL/uL Hemoglobin 12.5 12.0-16.0 g/dL Hematocrit 37.1 36-48 % Mean Corpuscular Volume 91.8 79-99 fL Mean Corpuscular Hemoglobin 30.9 27.0-33.0 pg Mean Corpuscular Hemoglobin Concent 33.7 32.0-36.0 g/dL Red Cell Distribution Width 13.0 11.0-15.5 % Platelet Count 187 130-400 K/uL Mean Platelet Volume 8.9 7.5-10.5 fL Nucleated Red Blood Cells 0.0 0.0-0.19 % Sodium Level 144 136-145 mmol/L Potassium Level 3.7 3.5-5.1 mmol/L Chloride Level 109 101-111 mmol/L Carbon Dioxide Level 27 21-32 mmol/L Blood Urea Nitrogen 13 7-18 mg/dL Creatinine 0.7 0.5-1.0 mg/dL Glomerular Filtration Rate Calc 92 >90 mL/min Random Glucose 103 70-105 mg/dL Total Calcium 8.4 L 8.5-10.1 mg/dL Magnesium Level 1.80 1.80-2.40 mg/dL Total Bilirubin 0.6 0.2-1.0 mg/dL Aspartate Amino Transf (AST/SGOT) 18 10-37 U/L Alanine Aminotransferase (ALT/SGPT) 19 12-78 U/L Alkaline Phosphatase 52 50-136 U/L Total Protein 6.1 6.0-8.3 g/dL Albumin 3.2 L 3.5-5.0 g/dL Urine Color YELLOW YELLOW Urine Appearance CLOUDY H CLEAR Urine pH 5.0 5.0-8.0 Urine Specific [place] 1.024 1.001-1.031 Urine Protein 10 H NEGATIVE mg/dL Urine Glucose (UA) NEGATIVE NEGATIVE mg/dL Urine Ketones NEGATIVE NEGATIVE mg/dL Urine Occult Blood +- (TRACE) H NEGATIVE Urine Nitrate 2+ H NEGATIVE Urine Bilirubin NEGATIVE NEGATIVE mg/dL Urine Urobilinogen 0.2 0.2-1.0 mg/dL Urine Leukocyte Esterase 500 H NEGATIVE Padmini/uL Urine RBC 6-10 H 0-1 /HPF Urine WBC 26-50 H 0-1 /HPF Urine Squamous Epithelial Cells FEW 0-2 /HPF Urine Bacteria FEW None Seen /HPF Urine Other Casts 2 None Seen /LPF Urine Opiates Screen NEGATIVE NEGATIVE Urine Barbiturates Screen NEGATIVE NEGATIVE Urine Phencyclidine Screen NEGATIVE NEGATIVE Urine Amphetamines Screen NEGATIVE NEGATIVE Urine Benzodiazepines Screen NEGATIVE NEGATIVE Urine Cocaine Screen NEGATIVE NEGATIVE Urine Marijuana (THC) Screen NEGATIVE NEGATIVE Immature Granulocyte % (Auto) 0.2 0-1 % Neutrophils (%) (Auto) 65.7 40.0-77.0 % Lymphocytes (%) (Auto) 25.4 21.0-51.0 % Monocytes (%) (Auto) 7.7 3.0-13.0 % Eosinophils (%) (Auto) 0.5 0.0-8.0 % Basophils (%) (Auto) 0.5 0.0-5.0 % Neutrophils # (Auto) 4.4 1.8-7.7 K/uL Lymphocytes # (Auto) 1.7 1.0-4.8 K/uL Monocytes # (Auto) 0.5 0.1-1.0 K/uL Eosinophils # (Auto) 0.03 0.00-0.70 K/uL Basophils # (Auto) 0.03 0.00-0.20 K/uL Absolute Immature Granulocyte (auto 0.01 0-1 K/uL Current Medications Medications (Trade) Dose Ordered Sig/Nunu Route PRN Reason Start Time Stop Time Status Last Admin Dose Admin Acetaminophen (TYLenol 325MG TAB) 650 mg Q4H PRN PO TEMPERATURE GREATER THAN 101.5 02/27/25 16:30 03/29/25 16:29 Acetaminophen (TYLenol 325MG TAB) 650 mg Q6H PRN PO MILD PAIN (1-3) 02/27/25 16:30 03/29/25 16:29 Ceftriaxone Sodium (Rocephin 2gm Inj) 2 gm Q24H IVPB 02/28/25 16:30 03/10/25 16:29 Donepezil HCl (ARIcept 5MG TAB) 10 mg HS PO 02/27/25 21:00 03/29/25 20:59 02/27/25 19:49 10 MG Losartan Potassium (CozAAR 100MG TAB) 100 mg HS PO 02/27/25 21:00 03/29/25 20:59 02/27/25 19:48 100 MG Magnesium Sulfate 50 ml @ 0 mls/hr PROTOCOL PRN IV PROTOCOL 02/28/25 05:30 03/30/25 05:29 02/28/25 05:21 25 MLS/HR Ondansetron HCl (zoFRAN 4MG INJ) 4 mg Q6H PRN IVP NAUSEA/VOMITING 02/27/25 16:30 03/29/25 16:29 Potassium Chloride 100 ml @ 100 mls/hr AD PRN IV POTASSIUM PROTOCOL 02/28/25 05:30 03/30/25 05:29 Potassium Chloride (K-Dur/Klor-Con 20meq) 20 meq AD PRN PO POTASSIUM PROTOCOL 02/28/25 05:30 03/30/25 05:29 02/28/25 05:22 20 MEQ Potassium Chloride (KCl 10% Elixir 20meq/15ml) 20 meq AD PRN PO POTASSIUM PROTOCOL 02/28/25 05:30 03/30/25 05:29 02/28/25 10:07 20 MEQ Sodium Chloride 1,000 ml @ 75 mls/hr [id number] IV 02/27/25 16:30 03/29/25 16:29 02/28/25 05:19 75 MLS/HR DIAGNOSTICS / RADIOLOGY: [ ] ASSESSMENT: [Acute delirium, likely secondary to urinary tract infection, POA -acute onset of agitation and behavioral changes, positive urinalysis, urine culture pending, no evidence of acute intracranial or cardiopulmonary process -Metabolic encephalopathy due to above Early Alzheimer's disease, POA -baseline cognitive impairment, recent increase in donepezil dosage Hypertension, POA -chronic, managed with losartan ] Urinary Infection, positive with Gram-negative rods, POA PLAN: [Patient will be admitted in medical-surgical floor Patient can have heart healthy diet Continue with supportive care We will repeat labs tomorrow Delirium/UTI: Continue IV ceftriaxone preliminary showing Gram-negative rods, pending final culture and sensitivity Monitor mental status and reorient as needed Ensure adequate hydration Monitor for complications (sepsis, worsening mental status) Alzheimer's disease: With 1-1 supervision Continue donepezil at current dose Monitor for adverse effects from recent dose increase Reassess cognitive baseline after resolution of acute illness Hypertension: Continue losartan 100 mg daily Monitor blood pressure and adjust antihypertensive therapy as needed General care: Fall precautions Monitor labs and vital signs Family education regarding delirium and UTI in the context of dementia Discharge planning with social work/case management as appropriate Case was seen and examined with Dr. Martinez, above plan was formulated Patient is a full code ATTESTATION BY PHYSICIAN I have seen and examined the patient. I reviewed the documentation, medical decision making, and treatment plan as noted by the mid-level provider above. I agree with the findings and plan of care. Ju Castanon MD, [facility] B [facility] Feb 28, 2025 15:05
--- NOTE | 2025-02-28 21:15 | NUR ---
BEHAVIORS PATIENT NOTED ANXIOUS PACING IN THE OROZCO YELLING OUT "HELP! MY DAD AND I CANT BELIEVE YOU ARE DOING THIS, I AM TRYING TO SEE MY DAD." ONE TO ONE SITTER AMBULATING NEXT TO PATIENT, ATTEMPTING TO REORIENT PATIENT TO TIME, PLACE AND ROOM. PATIENT STATED "NO IM NOT IN THE HOSPITAL, YOU ARE LYING, GET OUT OF MY WAY, I NEED TO FIND MY FATHER. I NEED SUZY." SUZY ARROYO CONTACTED VIA PHONE NUMBER [phone], SUZY NOTIFIED OF PATIENT AGITATION AND ASKED IF HE MAY REORIENT PATIENT VIA TELEPHONE OR IN PERSON. SON SPOKE TO PATIENT VIA TELEPHONE AND PATIENT DID GET MORE ANXIOUS AND STARTED YELLING OUT "NO SUZY YOU DONT UNDERSTAND, THEY ARE KEEPING ME LOCKED UP AND YOU WILL NEVER SEE ME AGAIN! TAKE ME HOME!". PATIENT THEN THREW THE PHONE ON SINK AND STATED GET OUT OF "MY WAY!" AND PUSHED NURSES HOSPITAL CLEANER WHO WAS STANDING BESIDE HER. CALLED AND SPOKE WITH SUSAN VELAZQUEZ P[employer] MULE WORKER TO REPORT AGITATION, NEW ORDER FOR ZYPREXA RECEIVED. RIOS DYKES CALLED. SEVERAL STAFF MEMBERS ATTEMPTED TO REORIENT PATIENT TO TIME AND PLACE, WITHOUT SUCCESS. CALLED AND SPOKE WITH SON SUZY ARROYO FOR A SECOND TIME, PER SON "OKAY TO GIVE PATIENT MEDICATION FOR AGITATION". PATIENT MEDICATION GIVEN WITH ASSISTANCE OF OTHER STAFF MEMBERS. PATIENT AMBULATED TO BED, BUT CONTINUES TO REFUSE TO SIT UNTIL SUZY COMES TO SEE HER. SUZY SON IS AWARE BUT STATED WILL SEE PATIENT TOMORROW. PATIENT CONTINUES ON ONE TO ONE OBSERVATION. PLAN OF CARE ONGOING.
[2025-03-01] VITALS: BP 149/81; PULSE 92; RESP 20; TEMP 98.2
[2025-03-01] MEDS: MELATONIN 5 MG TABLET PO ONE (01:55)
--- NOTE | 2025-03-01 01:55 | NUR ---
AGITATED AND RESTLESS. PATIENT CONTINUES AGITATED AND RESTLESS UNABLE TO SLEEP, STATES WAITING FOR SUZY TO GET HERE. PATIENT ADAMANT IS GOING HOME TONIGHT, PUTS ON SHOES AND WANTING TO WANDER HALLWAY. ATTEMPTING TO ENTER OTHER PATIENTS ROOMS. CONTINUES WITH ONE TO ONE SITTER BUT PATIENT IS INCONSOLABLE AND CONFUSED. UNABLE TO BE REORIENTED, OFFERED PATIENT FOOD, SOMETHING TO DRINK, ASSISTANCE TO BATHROOM, A BED TO SLEEP ON, DENIES PAIN. TELEVISION TURNED ON IN ATTEMPT TO DISTRACT, PATIENT CONTINUES TO INITIATE ARGUMENTS WITH STAFF STATED "NO YOU ARE LYING, BY DAD WILL BE HERE ANY MINUTE. IM 6 AND HE CHANGED ME ROOMS, THIS IS NOT MINE." PATIENT CONVINCED TO SIT IN CHAIR IN ROOM TO REST. PLAN OF CARE ONGOING.
--- NOTE | 2025-03-01 03:50 | NUR ---
SLEEP PATIENT ASSISTED INTO BED, AND FELL ASLEEP AT THIS TIME.
[2025-03-01 06:53] LABS: NUCLEATED RED BLOOD CELLS 0.0 % (0.0-0.19); PLATELET COUNT (AUTO) 217.0 K/uL (130-400); RED BLOOD CELL COUNT(AUTO) 4.34 MIL/uL (4.00-5.50); RED CELL DISTRIBUTION WIDTH 12.8 % (11.0-15.5); WHITE BLOOD COUNT (AUTO) 5.3 K/uL (4.8-10.8)
[2025-03-01 07:09] LABS: ASPARTATE AMINOTRANSFERASE 17.0 U/L (10-37); CREATININE 0.6 mg/dL (0.5-1.0); GLOMERULAR FILTR. RATE CALC 96.0 mL/min (>90); GLUCOSE,RANDOM 90.0 mg/dL (70-105); SODIUM SERUM 145.0 mmol/L (136-145); TOTAL PROTEIN, SERUM 6.9 g/dL (6.0-8.3); UREA NITROGEN, BLOOD 11.0 mg/dL (7-18)
[2025-03-01 07:29] VITALS: BP 137/87; PULSE 75; RESP 16; TEMP 97.3
[2025-03-01] MEDS ORDERED: QUET25TA PO (10:00)
[2025-03-01] MEDS ORDERED: CEPH500B PO (10:00)
[2025-03-01] MEDS ORDERED: PHARMACY COMMUNICATION MISC SCH (10:30)
[2025-03-01] MEDS: LIDOCAINE HCL MPF 1% 5ML VIAL IM ONE (10:50)
--- NOTE | 2025-03-01 11:08 | NUR ---
EDUCATED PATIENT SON ON DISCHARGE, GIVE INFORMATION ABOUT MEDS AND DISEASE PROCESS AND S/S OF UTI, HE VERBALIZE UNDERSTANDING.
--- NOTE | 2025-03-02 16:46 | DS ---
Discharge Summary Hospital Course Summary: DOS: 03/01/2025 This is a 69-year-old female with a history of early Alzheimers disease and hypertension who traveled from [place] to [place] with her son. During the trip, her son noted increased agitation and behavioral changes compared to her baseline. She was brought to the emergency department by ambulance for further evaluation. On arrival, her medications included donepezil (recently increased to 10 mg daily) and losartan 100 mg daily. In the ED, she received 1 L of normal saline and 2 g IV ceftriaxone. Urinalysis was positive for leukocyte esterase (500), and urine cultures were sent. Hematology and chemistry labs were unremarkable. Chest X-ray showed no acute cardiopulmonary pathology. Head CT without contrast revealed no acute bleed or infarct, but did show mild chronic ischemic and atrophic changes. She was admitted for further evaluation and management. During her hospital stay, she remained agitated and repeatedly expressed a desire to be discharged home. Despite multiple attempts by staff and her sister to explain the need for continued hospitalization pending final culture results, she was unable to fully comprehend the situation, consistent with her known history of early dementia. Final urine cultures were positive for E. coli. She remained hemodynamically stable and afebrile throughout her stay. She will be discharged with a prescription for Keflex 500 mg PO BID for 7 days for treatment of her urinary tract infection. Due to ongoing behavioral symptoms, Seroquel 25 mg PO at bedtime will be initiated per her sons request. Discharge Condition: Hemodynamically stable, afebrile, at cognitive baseline for her underlying dementia. Discharge Medications: Keflex 500 mg PO BID x 7 days Seroquel 25 mg PO at bedtime Continue home medications (donepezil, losartan) Follow-Up: PCP follow-up within 1 week Monitor for worsening confusion, fever, or other new symptoms Disposition: Discharged home with family. Assessment/Plan: Admitting Diagnoses: [Acute delirium, likely secondary to urinary tract infection, POA -acute onset of agitation and behavioral changes, positive urinalysis, urine culture pending, no evidence of acute intracranial or cardiopulmonary process -Metabolic encephalopathy Early Alzheimer's disease, POA -baseline cognitive impairment, recent increase in donepezil dosage Hypertension, POA -chronic, managed with losartan ] Urinary Tract infection, POA Discharge Diagnoses: Acute delirium, likely secondary to urinary tract infection, POA -acute onset of agitation and behavioral changes, positive urinalysis, urine culture pending, no evidence of acute intracranial or cardiopulmonary process -Metabolic encephalopathy Early Alzheimer's disease, POA -baseline cognitive impairment, recent increase in donepezil dosage Hypertension, POA -chronic, managed with losartan ] Urinary Tract infection, POA with E coli Home Medications: Active Scripts Cephalexin Monohydrate (Keflex) 500 Mg Cap, 1 CAP PO BID for 7 Days, #14 CAP 0 [facility] Quetiapine Fumarate (Seroquel) 25 Mg Tablet, 1 TAB PO HS for 30 Days, #30 TAB 0 Refills Prov:GISSELL [facility] 03/01/25 Reported Medications Donepezil HCl (Donepezil HCl) 10 Mg Tablet, 1 TAB PO HS for 30 Days, #30 TAB 0 Refills 02/27/25 Losartan Potassium (Losartan Potassium) 100 Mg Tablet, 1 TAB PO DAILY for 30 Days, #30 TAB 0 Refills 02/27/25 New Medications: Cephalexin Monohydrate (Keflex) 500 Mg Cap 1 CAP PO BID for 7 Days, #14 CAP 0 Refills Quetiapine Fumarate (Seroquel) 25 Mg Tablet 1 TAB PO HS for 30 Days, #30 TAB 0 Refills Continued Medications: Donepezil HCl (Donepezil HCl) 10 Mg Tablet 1 TAB PO HS for 30 Days, #30 TAB 0 Refills Losartan Potassium (Losartan Potassium) 100 Mg Tablet 1 TAB PO DAILY for 30 Days, #30 TAB 0 Refills Time spent arranging discharge: 31-60 minutes ATTESTATION BY PHYSICIAN I have seen and examined the patient. I reviewed the documentation, medical decision making, and treatment plan as noted by the mid-level provider above. I agree with the findings and plan of care. Ju Castanon MD, JANICE B AGACNP Mar 02, 2025 16:46
== END 2025-03-01 11:10 | disposition home or self-care (01) | DRG 689 ==
LOC: EDH 12:46 → INTOOBSV 16:10 → OBSVTOIN 16:10 → EDHIP 16:10 → 3AH 21:10
PROVIDERS: ADMIT Hospitalist; ATTEND Hospitalist
DX: N39.0 Urinary tract infection, site not specified (principal); G93.41 Metabolic encephalopathy; F02.B11 Dementia in other diseases classified elsewhere, moderate, with agitation; F02.80 Dementia in other diseases classified elsewhere, unspecified severity, without behavioral disturbance, psychotic disturbance, mood disturbance, and anxiety; G30.9 Alzheimer's disease, unspecified; I10 Essential (primary) hypertension; B96.20 Unspecified Escherichia coli [E. coli] as the cause of diseases classified elsewhere; J45.909 Unspecified asthma, uncomplicated; Z79.899 Other long term (current) drug therapy; Z90.710 Acquired absence of both cervix and uterus; Z96.649 Presence of unspecified artificial hip joint; Z90.49 Acquired absence of other specified parts of digestive tract; Z90.410 Acquired total absence of pancreas
CPT/HCPCS: 36415; 70450; 71045; 80053; 80305; 81001; 83735; 85025; 85027; 87086; 87186; 93005; 96365; 99285; G0378; J0696; J3475; J3490; J7030